=== PATIENT | male | born 1960 | race Caucasian/White ===

== ENCOUNTER → 2017-07-12 | Outpatient (CLI) | payer BC ==
--- NOTE | 2017-07-12 11:40 | DIAGNOSTIC IMAGING REPORT ---
RIGHT FOOT MIN 3 VIEWS ROUTINE HISTORY: 57 years-old Male chronic right foot pain. COMPARISON: None available TECHNIQUE: 3 views of the right foot FINDINGS: Large os peroneum is noted. Mild degenerative changes are noted about the first interphalangeal and metatarsal phalangeal joints. Chronic appearing fracture deformity involving the base of the third proximal phalanx. Corticated ossification, 4 mm seen adjacent to the lateral base of the first distal phalanx suggesting ossicle or sequela of remote injury. No acute fracture or dislocation. There is minimal dorsal spurring of the mid foot. Minimal enthesopathy involves the calcaneus at both the Achilles and plantar insertion sites. IMPRESSION: 1. No acute fracture or dislocation identified. 2. Minimal enthesopathy involves the calcaneus at both the Achilles and plantar insertion sites. 3. Chronic fracture deformity involves the medial base of the third proximal phalanx. The above report was generated using voice recognition software. It may contain grammatical, syntax or spelling errors. Electronically signed by: Kj Talavera M.D. 07/12/2017 11:39 AM Dictated Date/Time: 07/12/2017 11:36 AM
== END | disposition home or self-care (01) ==
LOC: C.RAD 10:59
PROVIDERS: ATTEND Family Medicine
DX: M79.671 Pain in right foot (principal); M21.6X1 Other acquired deformities of right foot

== ENCOUNTER → 2018-03-23 | Outpatient (CLI) | payer BC ==
--- NOTE | 2018-03-23 08:29 | DIAGNOSTIC IMAGING REPORT ---
RENAL ULTRASOUND HISTORY: ABDNORMAL KIDNEY FUNCTION STUDIES COMPARISON: None. FINDINGS: Right kidney: 11.6 cm. No hydronephrosis. Mild cortical thinning. Normal corticomedullary differentiation. Left kidney: 11.7 cm. No hydronephrosis. Mild cortical thinning. Normal corticomedullary differentiation. Bladder: No bladder wall thickening. The bilateral ureteral jets were identified. Hepatic steatosis. IMPRESSION: 1. No hydronephrosis. 2. Mild bilateral cortical renal thinning. 3. Hepatic steatosis. Electronically signed by: Black Rosales M.D. 03/23/2018 8:28 AM Dictated Date/Time: 03/23/2018 8:26 AM
== END | disposition home or self-care (01) ==
LOC: C.ULTRBC 07:56
PROVIDERS: ATTEND Family Medicine
DX: R94.4 Abnormal results of kidney function studies (principal); K76.0 Fatty (change of) liver, not elsewhere classified